=== PATIENT | female | born 1995 | race Caucasian/White ===

== ENCOUNTER 2020-04-09 14:38 | Outpatient (REF) | payer OTHER, SELFPAY | END 2020-04-09 14:39 | disposition home or self-care (01) | LOC: HO.HMGCLDS 14:38 | PROVIDERS: Visit Provider Internal Medicine | DX: Z20.828 Contact with and (suspected) exposure to other viral communicable diseases (principal) | CPT/HCPCS: C9803; U0003 ==

== ENCOUNTER 2020-07-20 08:41 | Outpatient (REF) | payer OTHER, SELFPAY ==
[2020-07-20 11:24] LABS: MANUAL DIFF FLAG NO
[2020-07-20 11:38] LABS: Basophils Absolute Auto 0.1 X10*3/uL (0.0-0.2); Basophils Percent Auto 1.3 % (0-2); Eosinophils Absolute Auto 0.1 X10*3/uL (0.0-0.4); Eosinophils Percent Auto 2.6 % (0-4); Hematocrit 39.5 % (37-47); Hemoglobin 12.9 g/dl (12.0-16.0); Imm Gran Abs Auto 0.01 X10*3/uL (0.00-0.03); Imm Gran Pct Auto 0.2 % (0.0-0.4); Lymphocytes Absolute Auto 2.2 X10*3/uL (1.2-4.9); Lymphocytes Percent Auto 48.8 % (20-40); Mean Corpuscular HGB Conc 32.7 g/dl (31.0-35.0); Mean Corpuscular Hemoglobin 28.4 pg (27.0-33.0); Mean Platelet Volume 11.2 fL (9.4-12.3); Monocytes Absolute Auto 0.3 X10*3/uL (0.1-1.2); Monocytes Percent Auto 7.3 % (2-11); Neutrophils Absolute Auto 1.8 X10*3/uL (2.0-8.3); Neutrophils Percent Auto 39.8 % (45-73); Platelet Count 224 X10*3/uL (160-400); Red Blood Count 4.54 X10*6/uL (4.20-5.50); Red Cell Distribution Width 12.3 % (11.0-16.0); White Blood Count 4.5 X10*3/uL (4.8-10.8)
[2020-07-20 11:58] LABS: Alanine Aminotransferase 30 U/L (0-31); Anion Gap 11 (12-20); Aspartate Amino Transferase 24 U/L (5-31); Blood Urea Nitrogen 10 mg/dL (9-16); Calcium 8.7 mg/dL (8.4-10.2); Carbon Dioxide 28 mmol/L (22-29); Chloride 107 mmol/L (96-108); Cholesterol 167 mg/dL; Estimated Glomerular Filt Rate > 60; Glucose Fasting 94 mg/dL (60-99); HDL Cholesterol 45 mg/dL; LDL Cholesterol Calculated 106 mg/dl; Potassium 3.9 mmol/L (3.3-5.1); Sodium 142 mmol/L (135-145); Triglycerides 81 mg/dL
[2020-07-20 12:04] LABS: TSH reflex Free T4 1.45 uIU/mL (0.32-4.0); Vitamin D 25-OH Total 21.1 ng/mL (>30)
== END 2020-07-20 08:42 | disposition home or self-care (01) ==
LOC: HO.HMGCLDS 08:41
PROVIDERS: PCP Internal Medicine; Visit Provider Internal Medicine
DX: Z00.01 Encounter for general adult medical examination with abnormal findings (principal); R06.02 Shortness of breath; R00.2 Palpitations; F41.1 Generalized anxiety disorder; I10 Essential (primary) hypertension
CPT/HCPCS: 36415; 80048; 80061; 82306; 84443; 84450; 84460; 85025

== ENCOUNTER → 2020-08-25 10:32 | Outpatient (BNVA) | payer OTHER, SELFPAY | PROVIDERS: PCP Internal Medicine; Visit Provider Internal Medicine | DX: R00.2 Palpitations (principal) | CPT/HCPCS: 93005 ==

== ENCOUNTER → 2020-10-11 08:32 | Outpatient (REF) | payer OTHER, SELFPAY ==
--- NOTE | 2020-10-11 08:37 | CA_ITS ---
Transthoracic Echocardiogram Patient (Last, First, Middle): Randa Tijerina L Gender: Female Date of : 1995 Age: 25 Procedure Date: 10/11/2020 Procedure Type: Transthoracic Echocardiogram Location: OP Height: 157.48 cm Weight: 50.8 kg BSA: 1.49 m2 Heart Rate: bpm BP: 100 / 50 mmHg [place]ogshead Cooper: MORGAN Chanel MD: Tyson Doyle MD [employer] Manager: Ludwig Murray MD Symptoms: R00.2 - Palpitations Study Quality: Good ECG Rhythm: Sinus Conclusions: - Normal study Findings Left Ventricle Normal left ventricular size, thickness, and systolic function. The visually estimated ejection fraction is between 60-65%. Diastolic function is normal for age. Right Ventricle Normal right ventricular cavity size and systolic function. Atria Both atria are normal in size. There is no evidence of interatrial shunt. Aortic Valve Normal aortic valve structure and function. There is no aortic valve stenosis. There is no aortic valve regurgitation. Mitral Valve Normal mitral valve structure and function. There is trace mitral valve regurgitation. There is no mitral valve stenosis. Pulmonic Valve The pulmonic valve is likely normal. Tricuspid Valve Normal tricuspid valve structure. There is trace tricuspid valve regurgitation. The right ventricular systolic pressure is normal. The right ventricular systolic pressure is 14 mmHg. Normal right atrial pressure. There is no evidence of pulmonary hypertension. Great Vessels All visible segments of the aorta are normal in size. The pulmonary artery was not well visualized. Venous The inferior vena cava is normal in size and collapses greater than 50% with inspiration. Pericardium/Pleural There is no evidence of pericardial effusion. Prior Study Comparison No prior study available for comparison. Measurements 2D Linear Measurements IVSd: 0.69 0.6-0.9/0.6-1.0 cm LVIDd: 3.98 3.9-5.3/4.2-5.9 cm LVIDd Index: 2.67 2.4-3.2/2.2-3.1 cm/m2 LVIDs: 2.63 2.0-3.6 cm LVPWd: 0.73 0.7-1.1 cm Ao Root: 2.80 2.1-3.5 cm LA Diam: 2.60 2.7-3.8/3.0-4.0 cm LAIDs Index: 1.74 1.5-2.3 cm/m2 LV Mass: 97.56 67-162/88-224 g LV Mass Index: 65.48 43-95/49-115 g/m2 LVOT Diam: 2.00 3.0+(-)1.3 cm 2D Systolic Function EF 4C: 54.50 >55% EF 2C: 67.80 >55% EF BiP: 61.50 >55% Mitral Valve MV Pk E: 0.78 MV PK A: 0.65 MV Decel Time: 218.00 E/A: 1.20 E'Lateral: 13.50 E'Medial: 11.00 E/E' Med: 7.10 E/E' Lat: 5.80 PHT: 64.00 MVA PHT: 3.44 Decel [place]: 3.56 Aortic Valve AoV Pk Vinny: 1.12 AoV Mn Vinny: 0.76 AoV VTI: 0.26 AoV Pk Grad: 5.00 Aov Mn Grad: 3.00 ODALYS Cont.VTI: 2.41 LVOT LVOT Pk Vinny: 0.93 LVOT Mn Vinny: 0.69 LVOT VTI: 0.20 LVOT Pk Grad: 3.00 LVOT Mn Grad: 2.00 LVOT Diam: 2.00 LVOT Area: 3.14 Diastolic Function MV Pk E: 0.78 MV Pk A: 0.65 E/A: 1.20 E'Medial: 11.00 E/E' Med: 7.10 E' Laterial: 13.50 E/E' Lat: 5.80 Tricuspid Valve TR Pk Vinny: 1.66 TR Pk Grad: 11.00 RA Press: 3.00 RVSP: 14.00 Great Vessels Aorta Ao Root-2D: 2.80 2.0-3.7 cm Ao Asc: 2.40 2.1-3.4 cm Ao Arch: 2.10 Updated in Other Vendor System with Status of Final Ludwig Murray MD electronically signed on 10/11/2020 1:35:31 PM with status of Final
--- NOTE | 2020-10-11 08:37 | ECG_ITS ---
Hook-up date: 2020-10-11 09:29:00 Duration: 28:44:00 Test Indications: PALPITATIONS Medications: 072347 QRS complexes 2 Ventricular ectopics which represent <1 % of total QRS comp. 238 Supraventricular ectopics which represent <1 % of total QRS comp. * Paced QRS complexs which represent % of total QRS comp. VENTRICULAR ECTOPY 2 Isolated 0 Bigeminal Cycles 0 Couplets 0 Runs 0 Beats in Runs * Beats LONGEST at * BPM at :: -- * Beats FASTEST at * BPM at :: -- SUPRAVENTRICULAR ECTOPY 0 Isolated 0 Couplets 0 Runs 0 Beats in Runs * Beats LONGEST at * BPM at :: -- * Beats FASTEST at * BPM at :: -- HEART RATES 52 MIN at 03:07:50 2020-10-12 82 AVG 186 MAX at 18:09:42 2020-10-11 LONGEST RR 1.2560 secs at 05:48:48 2020-10-12 S-T LEVELS Channel 1 - 128 mm at 09:29:00 2020-10-11 - 128 mm at 09:29:00 2020-10-11 Channel 2 - 128 mm at 09:29:00 2020-10-11 - 128 mm at 09:29:00 2020-10-11 Channel 3 - 128 mm at 02:84:81 -- - 128 mm at 02:84:81 Basic rhythm Normal sinus rhythm No long pause or profound bradycardia No dangerous dysrhythm periods Patient reported symptoms correlated with NSR Referred By: Tyson Doyle Overread By: THERON ANDRE MD
== END ==
LOC: HO.CARD 08:32
PROVIDERS: Visit Provider Internal Medicine
DX: R00.2 Palpitations (principal)
CPT/HCPCS: 93225; 93226; 93306

== ENCOUNTER → 2020-10-20 13:14 | Outpatient (BNVA) | payer OTHER, SELFPAY | PROVIDERS: PCP Internal Medicine; Referring Provider Internal Medicine; Visit Provider Internal Medicine ==

== ENCOUNTER 2021-07-21 09:42 | Outpatient (REF) | payer OTHER, SELFPAY ==
[2021-07-21 11:22] LABS: MANUAL DIFF FLAG NO
[2021-07-21 11:33] LABS: Basophils Percent Auto 0.6 % (0-2); Eosinophils Absolute Auto 0.2 X10*3/uL (0.0-0.4); Eosinophils Percent Auto 2.1 % (0-4); Hematocrit 40.3 % (37.0-47.0); Hemoglobin 13.3 g/dl (12.0-16.0); Imm Gran Abs Auto 0.02 X10*3/uL (0.00-0.03); Imm Gran Pct Auto 0.3 % (0.0-0.4); Lymphocytes Absolute Auto 2.2 X10*3/uL (1.2-4.9); Lymphocytes Percent Auto 30.8 % (20-40); Mean Corpuscular Hemoglobin 28.7 pg (27.0-33.0); Monocytes Absolute Auto 0.5 X10*3/uL (0.1-1.2); Neutrophils Absolute Auto 4.2 x10*3/uL (2.0-8.3); Neutrophils Percent Auto 59.2 % (45-73); Platelet Count 219 X10*3/uL (160-400); Red Blood Count 4.63 X10*6/uL (4.20-5.50); Red Cell Distribution Width 12.3 % (11.0-16.0); White Blood Count 7.1 X10*3/uL (4.8-10.8)
[2021-07-21 11:53] LABS: Alanine Aminotransferase 11 U/L (0-31); Anion Gap 12 (12-20); Aspartate Amino Transferase 19 U/L (5-31); Blood Urea Nitrogen 11 mg/dL (9-16); Carbon Dioxide 27 mmol/L (22-29); Chloride 105 mmol/L (96-108); Cholesterol 162 mg/dL; Estimated Glomerular Filt Rate > 60; Glucose Fasting 84 mg/dL (60-99); HDL Cholesterol 44 mg/dL; LDL Cholesterol Calculated 102 mg/dl; Potassium 4.4 mmol/L (3.3-5.1); Sodium 140 mmol/L (135-145); Triglycerides 84 mg/dL
[2021-07-21 12:13] LABS: Vitamin D 25-OH Total 30.2 ng/mL (>30)
== END 2021-07-21 09:43 | disposition home or self-care (01) ==
LOC: HO.HMGCLDS 09:42
PROVIDERS: Visit Provider Internal Medicine
DX: Z00.00 Encounter for general adult medical examination without abnormal findings (principal); F41.1 Generalized anxiety disorder; Z86.39 Personal history of other endocrine, nutritional and metabolic disease
CPT/HCPCS: 36415; 80048; 80061; 82306; 84450; 84460; 85025

== ENCOUNTER 2022-08-01 09:07 | Outpatient (REF) | payer OTHER, SELFPAY ==
[2022-08-01 11:15] LABS: MANUAL DIFF FLAG NO
[2022-08-01 11:35] LABS: Basophils Absolute Auto 0.1 X10*3/uL (0.0-0.2); Basophils Percent Auto 1.1 % (0-2); Eosinophils Absolute Auto 0.1 X10*3/uL (0.0-0.4); Eosinophils Percent Auto 2.2 % (0-4); Hematocrit 42.5 % (37.0-47.0); Hemoglobin 14.3 g/dl (12.0-16.0); Imm Gran Abs Auto 0.01 X10*3/uL (0.00-0.03); Imm Gran Pct Auto 0.2 % (0.0-0.4); Lymphocytes Absolute Auto 2.5 X10*3/uL (1.2-4.9); Lymphocytes Percent Auto 45.3 % (20-40); Mean Corpuscular HGB Conc 33.6 g/dl (31.0-35.0); Mean Corpuscular Hemoglobin 29.4 pg (27.0-33.0); Mean Corpuscular Volume 87.3 fL (80.0-98.0); Mean Platelet Volume 10.1 fL (9.4-12.3); Monocytes Absolute Auto 0.4 X10*3/uL (0.1-1.2); Monocytes Percent Auto 7.3 % (2-11); Neutrophils Absolute Auto 2.4 x10*3/uL (2.0-8.3); Neutrophils Percent Auto 43.9 % (45-73); Platelet Count 262 X10*3/uL (160-400); Red Blood Count 4.87 X10*6/uL (4.20-5.50); Red Cell Distribution Width 12.5 % (11.0-16.0); White Blood Count 5.5 X10*3/uL (4.8-10.8)
[2022-08-01 12:25] LABS: Alanine Aminotransferase 20 U/L (0-31); Anion Gap 13 (12-20); Aspartate Amino Transferase 21 U/L (5-31); Blood Urea Nitrogen 14 mg/dL (9-16); Calcium 8.7 mg/dL (8.4-10.2); Carbon Dioxide 28 mmol/L (22-29); Chloride 105 mmol/L (96-108); Cholesterol 194 mg/dL; Estimated Glomerular Filt Rate > 60; Glucose Fasting 97 mg/dL (60-99); HDL Cholesterol 50 mg/dL; LDL Cholesterol Calculated 106 mg/dl; Potassium 3.8 mmol/L (3.3-5.1); Sodium 142 mmol/L (135-145); Triglycerides 192 mg/dL
[2022-08-01 12:42] LABS: Vitamin D 25-OH Total 38.7 ng/mL (>30)
[2022-08-01 13:58] LABS: CT PCR NOT DETECTED (Not Detect.); NG PCR NOT DETECTED (Not Detect.)
[2022-08-02 05:56] LABS: HBc Num1 0.09 S/CO (0.00-0.79); HBsAGNum1 0.35 S/CO (0.00-0.99); HIV AB/AG Nonreactive (Nonreactive); HIV Num 1 0.09 S/CO (0.00-0.99); Hepatitis B Core Antibody Nonreactive (Nonreactive); Hepatitis B Surface Antigen Negative (Negative); ~HepC Num1 0.19 S/CO (0.00-0.79); ~Hepatitis B Surface Antibody NONREACTIVE (Nonreactive); ~Hepatitis C Antibody Nonreactive (Nonreactive)
== END 2022-08-01 09:08 | disposition home or self-care (01) ==
LOC: HO.HMGCLDS 09:07
PROVIDERS: PCP Internal Medicine; Visit Provider Internal Medicine
DX: Z00.01 Encounter for general adult medical examination with abnormal findings (principal); F41.1 Generalized anxiety disorder; Z86.39 Personal history of other endocrine, nutritional and metabolic disease; Z20.2 Contact with and (suspected) exposure to infections with a predominantly sexual mode of transmission
CPT/HCPCS: 0353U; 80048; 80061; 82306; 84450; 84460; 85025; 86704; 86706; 86803; 87340; 87389

== ENCOUNTER 2022-10-14 10:40 | Outpatient (REF) | payer OTHER, SELFPAY | END 2022-10-14 10:41 | disposition home or self-care (01) | LOC: HO.LAB 10:40 | PROVIDERS: Visit Provider Physician Assistant Medical | DX: Z13.89 Encounter for screening for other disorder (principal) ==

== ENCOUNTER 2022-10-14 11:13 | Outpatient (REF) | payer OTHER, SELFPAY ==
[2022-10-14 12:10] LABS: Influenza A PCR NEGATIVE (Negative); Influenza B PCR NEGATIVE (Negative); Resp Syncy Virus RNA Qual PCR NEGATIVE (Negative); SARS COV2 PCR INHOUSE NEGATIVE (Negative)
== END 2022-10-14 11:14 | disposition home or self-care (01) ==
LOC: HO.LNP 11:13
PROVIDERS: Visit Provider Physician Assistant Medical
DX: R05.9 Cough, unspecified (principal); Z20.822 Contact with and (suspected) exposure to COVID-19
CPT/HCPCS: 0241U

== ENCOUNTER 2023-02-05 10:03 | Outpatient (AMB) | payer OTHER, SELFPAY ==
--- NOTE | 2023-02-05 10:30 | AM.OFFVISNUR ---
Intake Intake Visit Reasons: hep vax Intake Note: Pt arrived for Hep B #3 Allergies No Known Allergies Allergy (Verified 10/25/22 17:32) Immunizations Engerix-B (PF) 20 mcg/mL intramuscular suspension Performing Provider: Ying Castillo MD Performing Location: [facility] Administered by: Ruth Munoz RN on 02/05/23 10:31 Dose Route Admin Location Dispensed Lot Number Expiration Date NDC Stock Handler Floorperson 1 mL IM Left Deltoid 1.0 mL [id number] 04/29/23 09780-928-05 [employer] VIS Given Date VIS Provided VIS Publication Date 02/05/23 Single Vaccine 22 Eligibility Eligibility Date Funding Source Not [facility] Eligible 02/05/23 Private Coding Assessment & Plan Assessment & Plan Orders: Orders Hepatitis B Adult Immunization Today Z23 - Encounter for immunization
== END 2023-02-05 10:58 | disposition home or self-care (01) ==
PROVIDERS: Visit Provider Internal Medicine
DX: Z23 Encounter for immunization (principal)
CPT/HCPCS: 90471; 90746

== ENCOUNTER → 2023-04-09 16:28 | Outpatient (AMB) | payer OTHER, SELFPAY ==
--- NOTE | 2023-04-09 16:23 | A.OFFPC_ITS ---
Intake Visit Reasons: Medications F/U Intake Note: Pt is having a telehealth visit to discuss refills on new rx for Zoloft 50mg once a day that was given to her about 1.5 months ago thru online telehealth Allergies No Known Allergies Allergy (Verified 04/09/23 16:42) Medication List - Last Reconciled 04/09/23 by Ying Castillo MD levonorgestrel intrauterine sertraline (Zoloft) 50 mg PO DAILY Tobacco use date assessed: 04/09/23 Dental Screening Dental Screen Date: 04/09/23 Did you have a dental visit in the last 12 months?: Yes Did you have a dental problem in the last 6 months where you did not have access to dental care?: No Was dental information given to patient?: Patient has dentist HPI Medications F/U HPI Details 28-year-old lady here today for follow-u p on her anxiety disorder. She did not feel any better on the buspirone, and started seeing a psychiatrist online, who started her on sertraline 50 mg taken 1 tablet once a day at around 07:00 all the time. Patient states that she feels much better, calmer, on this medication and has stopped taking buspirone. However, she still gets occasional episodes of panicky feeling couple of hours after taking her sertraline, and would like to see if she can get prescription for hydroxyzine, to take as needed for 1 of these episodes. Does not happen all the time. She also was prescribed trazodone 50 mg 1 tablet at bedtime for acute anxiety attacks and difficulty with sleeping. She however states that medication made made her feel hung-over. Decreased the dose to 25 mg but this did not help her sleep at all. [facility] Medical History (Updated 04/09/23 @ 17:02 by Ying Castillo MD) History of vitamin D deficiency Generalized anxiety disorder Surgical History No pertinent past surgical history Family History Father Medical history non-contributory Mother Medical history non-contributory Maternal Grandmother Diabetes mellitus Social History Housing: House Alcohol intake: current Patient Tobacco Use Status: Never used Tobacco e-Cigarette/Vaping Use: Never Used service: No Current occupational status: employed Cognitive needs: No Hearing needs: No Vision needs: No Questionnaire Thrive Questionnaire Date Thrive assessed: 07/24/22 AUDIT C Alcohol Use Questionnaire (AUDIT-C) 1. How often do you have a drink containing alcohol?: Monthly or less 2. How many drinks containing alcohol do you have on a typical day when you are drinking?: 1 or 2 3. How often do you have six or more drinks on one occasion?: Never Total Score: 1 ANGELA-7 AMB Questionnaire ANGELA-7 Date ANGELA - 7 assessed: 04/09/23 Feeling nervous, anxious, or on edge: 0 = Not at all Not being able to stop or control worryin = Several days Worrying too much about different things: 0 = Not at all Trouble relaxin = Not at all Being so restless that it is hard to sit still: 0 = Not at all Becoming easily annoyed or irritable: 0 = Not at all Feeling afraid as if something awful might happen: 0 = Not at all Total ANGELA-7 score (0-4 normal; 5-9 mild; 10-14 moderate; 15-21 severe): 1 Source: Developed by Drs. Edu Guerra, Kirti Dwyer, Dennis Barr and colleagues, with an educational nila from [employer]. ANGELA-7 Assessment Billing ANGELA-7 Assessment Tool: ANGELA-7 Assessment 02712 Review of Systems Const Denies fatigue and Denies malaise ENT Denies dizziness Card Denies chest pain, Denies leg edema, Denies lightheadedness, Denies palpitations and Denies dyspnea Resp Denies cough and Denies dyspnea GI Denies abdominal pain, Denies bloating, Denies hematochezia, Denies change in bowel habits, Denies heartburn and Denies nausea Musc Denies muscle weakness, Denies numbness, Denies radiating pain into limb and Denies tingling Neuro Denies dizziness, Denies numbness and Denies tingling Psych Reports as per HPI Endo Denies fatigue and Denies palpitations Negro/Lymph Reports no additional complaints Aller/Immun Reports no additional complaints Physical exam (Primary Care) Tobacco/Smoking Status: Tobacco use Status Tobacco use date assessed 04/09/23 04/09/23 16:26 Patient Tobacco Use Status Never used Tobacco 04/09/23 16:26 e-Cigarette/Vaping Use Never Used 04/09/23 16:26 Thrive Assessment: Date of Thrive Assessment Date Thrive assessed 07/24/22 04/09/23 16:26 Telehealth Telehealth Location of provider rendering services: practice address Location of patient: address on file Patient Identification confirmed using: Name, : Yes Telehealth method: video Patient verbally consented to treatment: Yes Patient verbally consented to billing insurance company: Yes Patient informed of any privacy concerns related to visit: Yes Minutes spent on Phone/Video with Pt.: 15 Assessment and Plan Assessment & Plan (1) Generalized anxiety disorder: Code(s): F41.1 - Generalized anxiety disorder Plan: Currently seeing a therapist, will continue on sertraline 50 mg once a day which has been helping, and prescription was also sent for hydroxyzine 10 mg per tablet to take 1/2-1 tablet once a day as needed for acute anxiety attacks/insomnia. Medications: New hydroxyzine HCl 10 mg PO .QD PRN 30 tabs 0RF Acute anxiety attacks/insomnia sertraline (Zoloft) 50 mg PO DAILY 90 tabs 1RF sertraline (Zoloft) 50 mg PO DAILY 90 tabs 1RF hydroxyzine HCl 10 mg PO .QD PRN 30 tabs 0RF Acute anxiety attacks/insomnia Coding Level of Care Code Tele Est Pt Level 3 (35047) Diagnoses Generalized anxiety disorder F41.1 Additional Codes ANGELA-7 Assessment Billing - ANGELA-7 Assessment Tool: ANGELA-7 Assessment 25776 ([id number])
== END ==
PROVIDERS: PCP Internal Medicine; Visit Provider Internal Medicine
DX: F41.1 Generalized anxiety disorder (principal)
CPT/HCPCS: 99213

== ENCOUNTER 2023-08-02 07:54 | Outpatient (AMB) | payer OTHER, SELFPAY ==
--- NOTE | 2023-08-02 08:01 | A.OFFPC_ITS ---
Vital Signs 08/02/23 08:02 Height 5 ft 2 in Weight 118 lb 6 oz BMI 21.6 BP 112/72 Blood Pressure Location Rt brachial Position Sitting Pulse 90 Pulse Source Pulse Oximeter Pulse Oximetry (%) 98 Oxygen Delivery Method Room Air Intake Visit Reasons: PE Intake Note: Pt is here for her Annual PE Pt's last pap 2 years ago and next appt 08/17/23 Is last menstrual period known: Yes Last menstrual period: 06/28/23 Allergies No Known Allergies Allergy (Verified 08/02/23 08:17) Medication List - Last Reconciled 08/02/23 by Ying Castillo MD hydroxyzine HCl 10 mg PO .QD PRN levonorgestrel intrauterine sertraline (Zoloft) 75 mg (1.5 x 50 mg) PO DAILY 3 months Tobacco use date assessed: 08/02/23 Dental Screening Dental Screen Date: 08/02/23 Did you have a dental visit in the last 12 months?: Yes Did you have a dental problem in the last 6 months where you did not have access to dental care?: No Was dental information given to patient?: Patient has dentist HPI PE HPI Details 28 Lady here today for her physical exam . She is up-to-date with the last Pap smear, done 2 years ago and has an appointment to get it done again later this month. Recently had Mirena inserted earlier this year by her OBGYN. Has generalized anxiety disorder, currently stable controlled now on sertraline 75 mg taken once a day, requesting refill. Wentr rock climbing approximately 2 months ago and fell backwards landing on her buttocks with her arms stretched out on the floor, felt pain in the back of her head afterwards and has been having intermittent episodes of discomfort in the posterior neck specially when lying supine. Denies any dizziness no loss of consciousness, no change in vision.. [facility] Medical History History of vitamin D deficiency Generalized anxiety disorder Surgical History No pertinent past surgical history Family History Father Medical history non-contributory Mother Medical history non-contributory Maternal Grandmother Diabetes mellitus Social History Housing: House Alcohol intake: current Patient Tobacco Use Status: Never used Tobacco e-Cigarette/Vaping Use: Never Used service: No Current occupational status: employed Cognitive needs: No Hearing needs: No Vision needs: No Female Reproductive History Menstrual Date of last menstrual period: 06/28/23 control method: progestin IUCD (Goes to [facility], placed 06/28/23 per patient) Other: Goes to [facility] for her routine Pap and pelvic exam, has an appointment for a repeat Pap later this month Questionnaire PHQ-9 Over the last 2 weeks, how often have you been bothered by any of the following problems? 1. Little interest or pleasure in doing things: not at all 2. Feeling down, depressed, or hopeless: not at all 3. Trouble falling or staying asleep, or sleeping too much: not at all 4. Feeling tired or having little energy: not at all 5. Poor appetite or overeating: not at all 6. Feeling bad about yourself - or that you are a failure or have let yourself or your family down: not at all 7. Trouble concentrating on things, such as reading the newspaper or watching television: not at all 8. Moving or speaking so slowly that other people could have noticed. Or the opposite - being so fidgety or restless that you have been moving around a lot more than usual: not at all 9. Thoughts that you would be better off or of hurting yourself in some way: not at all Total score: 0 Depression Screening Interpretation: Negative Depression Screening Done: Yes 13517 - PHQ-9 Billing: Yes Source: Developed by Drs. Edu Guerra, Kirti Dwyer, Dennis Barr and colleagues, with an educational nila from [employer]. Thrive Questionnaire Date Thrive assessed: 08/02/23 I am a: Patient What is your living situation today?: I have a steady place to live Within the past 12 months, did the food you bought not last and you didn't have the money to get more?: Never true Within the past 12 months, did you worry whether your food would run out before you got money to buy more?: Never true Do you have trouble paying for medicines?: No Do you have trouble getting transportation to medical appointments?: No Do you have trouble paying your heating and electricity bill?: No Do you have trouble taking care of your child, family member or friend?: No Do you have trouble with day-to-day activities such as bathing, preparing meals, shopping, managing finances, etc.?: No Are you currently unemployed and looking for a job?: No Are you interested in more education?: No THRIVE Score: 0 AUDIT C Alcohol Use Questionnaire (AUDIT-C) 1. How often do you have a drink containing alcohol?: Monthly or less 2. How many drinks containing alcohol do you have on a typical day when you are drinking?: 1 or 2 3. How often do you have six or more drinks on one occasion?: Never Total Score: 1 ANGELA-7 AMB Questionnaire ANGELA-7 Date ANGELA - 7 assessed: 08/02/23 Feeling nervous, anxious, or on edge: 0 = Not at all Not being able to stop or control worryin = Not at all Worrying too much about different things: 0 = Not at all Trouble relaxin = Not at all Being so restless that it is hard to sit still: 0 = Not at all Becoming easily annoyed or irritable: 0 = Not at all Feeling afraid as if something awful might happen: 0 = Not at all Total ANGELA-7 score (0-4 normal; 5-9 mild; 10-14 moderate; 15-21 severe): 0 Source: Developed by Drs. Edu Guerra, Kirti Dwyer, Dennis Barr and colleagues, with an educational nila from [employer]. ANGELA-7 Assessment Billing ANGELA-7 Assessment Tool: ANGELA-7 Assessment 59448 Review of Systems Const Denies fatigue, Denies headache(s), Denies malaise and Denies weakness Eyes Reports no additional complaints ENT Reports as per HPI, Denies dizziness, Denies headache(s) and Denies disequilibrium Card Denies chest pain, Denies lightheadedness, Denies palpitations and Denies dyspnea Resp Denies cough and Denies dyspnea GI Denies abdominal pain, Denies bloating, Denies hematochezia, Denies change in bowel habits and Denies heartburn Reports no additional complaints Musc Reports as per HPI, Denies muscle weakness and Denies numbness Skin/Breast Denies breast pain, Denies breast mass, Denies lesions and Denies rash Neuro Denies dizziness, Denies headache(s), Denies numbness, Denies disequilibrium and Denies weakness Psych Reports as per HPI Endo Denies fatigue and Denies palpitations Negro/Lymph Reports no additional complaints Aller/Immun Reports no additional complaints Physical exam (Primary Care) Vital Signs: Last Vital Signs Pulse 90 08/02/23 08:02 BP 112/72 08/02/23 08:02 Pulse Ox 98 08/02/23 08:02 Oxygen Delivery Method Room Air 08/02/23 08:02 BMI result Body Mass Index 21.6 Tobacco/Smoking Status: Tobacco use Status Tobacco use date assessed 08/02/23 08/02/23 08:04 Patient Tobacco Use Status Never used Tobacco 08/02/23 08:01 e-Cigarette/Vaping Use Never Used 08/02/23 08:01 Depression Screening Interpretation: Negative Thrive Assessment: Date of Thrive Assessment Date Thrive assessed 07/24/22 08/02/23 08:01 Advance Care Planning discussion: Declined forms Const General: cooperative, healthy appearing, comfortable and no acute distress Nutritional Appearance: average body habitus Orientation/consciousness: patient oriented x3 HENMT Head: Yes normocephalic Ears: external ears normal, TM's normal bilaterally and EAC's normal General nose exam: Normal external nose present Face and sinus: Yes face symmetric Mouth: Normal oral and palatal mucosa present and moist mucous membranes Eyes General: appearance normal, both eyes and all related structures Neck Neck: Yes full ROM, Yes no lymphadenopathy and Yes supple Thyroid: Thyroid normal Chest Chest palpation & inspection: normal inspection of the chest Breast/axilla inspection: normal inspection of the breasts Breast/axilla palpation: normal palpation of the breasts Resp Effort & Inspection: normal respiratory effort and able to speak in complete sentences Auscultation: clear to auscultation bilaterally Cardio Palpation: normal PMI Rate: regular rate Rhythm: regular rhythm Heart sounds: S1 normal heart sound present and S2 normal heart sound present GI Inspection: Yes normal to inspection Palpation (GI): Soft to palpation, nontender, no guarding and no masses Auscultation: normal bowel sounds General: Yes no CVA tenderness Back/Spine/Pelvis Back: no CVA tenderness Cervical Spine: cervical ROM normal Thoracic/Lumbar Spine: thoracic and lumbar spine normal to inspection Skin General skin exam: no rashes or lesions noted Neuro General: patient oriented x3, gait normal, tone normal, moves all extremities, no focal motor deficits and CN's II-XI intact bilaterally Gait exam (Neuro): Normal gait present Motor exam (neuro): 5/5 motor strength present throughout Extrem General: Yes full ROM, Yes no joint enlargement, Yes no pedal edema, Yes no calf tenderness and Yes normal gait Psych Appearance: grossly normal and well kempt Mental Status: mental status grossly normal Speech and movement: Normal speech and movement present Affect: normal affect Attitude: cooperative Thought process: Normal thought process present Thought content: Normal thought content present Assessment and Plan Assessment & Plan (1) Annual visit for general adult medical examination with abnormal findings: Code(s): Z00.01 - Encounter for general adult medical examination with abnormal findings Plan: Will check appropriate labs. Recommended dental visit every 6 months and regular eye exams, at least every 2 years. Take adequate calcium in diet and vitamin-D 3 at 2000 IU per cap once a day, in addition to weight-bearing exe rcises to help maintain good muscle tone and weight control. Instructed to do self-breast exam, and recommended to stsrt yearly mammogram at age 40. Goes to her OBGYN at [facility] for her routine Pap and pelvic exam and for her control, has an appointment already scheduled for later this month. Up-to-date with her hepatitis-B vaccination, Tdap, but does not want to get a COVID vaccine booster or the flu shot this year. (2) Generalized anxiety disorder: Code(s): F41.1 - Generalized anxiety disorder Plan: Stable controlled on sertraline 75 mg once a day, refill sent (3) History of vitamin D deficiency: Code(s): Z86.39 - Personal history of other endocrine, nutritional and metabolic disease Plan: Check vitamin-D left (4) Cervicalgia: Code(s): M54.2 - Cervicalgia Plan: X-ray of cervical spine advised to try massaging diclofenac gel to affected area to 2 3 times a day as needed for pain relief Orders: Orders Alanine Aminotransferase 08/02/23 F41.1 - Generalized anxiety disorder, Z00.01 - Encounter for general adult medical examination with abnormal findings, Z86.39 - Personal history of other endocrine, nutritional and metabolic disease Aspartate Amino Transferase 08/02/23 F41.1 - Generalized anxiety disorder, Z00.01 - Encounter for general adult medical examination with abnormal findings, Z86.39 - Personal history of other endocrine, nutritional and metabolic disease Basic Metabolic Panel Fasting 08/02/23 F41.1 - Generalized anxiety disorder, Z00.01 - Encounter for general adult medical examination with abnormal findings, Z86.39 - Personal history of other endocrine, nutritional and metabolic disease Lipid Panel 08/02/23 F41.1 - Generalized anxiety disorder, Z00.01 - Encounter for general adult medical examination with abnormal findings, Z86.39 - Personal history of other endocrine, nutritional and metabolic disease Vitamin D 25-OH Total 08/02/23 F41.1 - Generalized anxiety disorder, Z00.01 - Encounter for general adult medical examination with abnormal findings, Z86.39 - Personal history of other endocrine, nutritional and metabolic disease XR cervical spine w flex/ext 08/02/23 M54.2 - Cervicalgia Medications: Changed From sertraline (Zoloft) 50 mg PO DAILY 90 tabs 1RF To sertraline (Zoloft) 75 mg (1.5 x 50 mg) PO DAILY 3 months 135 tabs 3RF Coding Level of Care Code Est Pt Prev Care 18-39y(04924) Diagnoses Annual visit for general adult medical examination with abnormal findings Z00.01 Generalized anxiety disorder F41.1 History of vitamin D deficiency Z86.39 Cervicalgia M54.2 Additional Codes ANGELA-7 Assessment Billing - ANGELA-7 Assessment Tool: ANGELA-7 Assessment 90317 ([id number]) Vital Signs *Quality* - Advance Care Planning discussion: Declined forms ([id number])
[2023-08-02 08:02] VITALS: BP 112/72; PULSE 90; O2SAT 98; BMI 21.6
== END 2023-08-02 09:12 | disposition home or self-care (01) ==
PROVIDERS: Visit Provider Internal Medicine
DX: Z00.00 Encounter for general adult medical examination without abnormal findings (principal); F41.1 Generalized anxiety disorder; Z86.39 Personal history of other endocrine, nutritional and metabolic disease; M54.2 Cervicalgia
CPT/HCPCS: 1124F; 99395

== ENCOUNTER 2023-08-02 08:32 | Outpatient (REF) | payer OTHER, SELFPAY ==
--- NOTE | ~2023-08-02 | XR_ITS ---
EXAMINATION: XR CERVICAL SPINE CLINICAL INFORMATION: Neck pain. COMPARISON: None available. TECHNIQUE: 5 views of the cervical spine, inclusive of flexion and extension views, were obtained. FINDINGS: Mild reversal of the normal cervical lordosis centered at C4. Approximately 1 mm posterior subluxation of C2 on C3, C3 on C4, and C4 on C5 on extension. No significant subluxation in neutral. Approximately 1 mm anterior subluxation of C2 on C3, C4 on C5, and C5 on C6 in flexion. No intrinsic bony abnormality identified. The disc heights appear well maintained. The endplates and posterior elements otherwise appear unremarkable. No fracture appreciated. The surrounding prevertebral soft tissues appear unremarkable. XR/XR cervical spine w flex/ext IMPRESSION: Findings as above.
== END 2023-08-02 08:33 | disposition home or self-care (01) ==
LOC: HO.HMGCX 08:32
PROVIDERS: PCP Internal Medicine; Visit Provider Internal Medicine
DX: M54.2 Cervicalgia (principal)
CPT/HCPCS: 72052

== ENCOUNTER 2023-08-24 13:07 | Outpatient (AMB) | payer OTHER, SELFPAY ==
--- NOTE | 2023-08-24 13:10 | A.SPINEOV_ITS ---
Intake Intake Visit Reasons: cervicalgia Intake Note: Ms. Tijerina is here today c/o neck pain. Nutrition Coordinator Required: No Allergies No Known Allergies Allergy (Verified 08/02/23 08:17) Assessment & Plan Assessment & Plan (1) Neck Pain: Code(s): M54.2 - Cervicalgia Plan Dear Dr. Castillo Thank you for referring Randa to our office today. 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 She comes in today with a chief complaint of neck pain. She reports that back in April she was rock climbing at a gym, and fell backwards bracing herself on her hands. She reports significant posterior neck pain directly after this incident. She reports her pain was severe when she 1st experienced the fall, however it has gradually been getting better. She states that she has attempted to utilize Tylenol, ibuprofen, and Salonpas/heat with adequate relief of her pain. She reports that completing 45 degrees of lateral rotation to the left of the right exacerbates her symptoms. Resting helps to alleviate her symptoms. PMH: History of vitamin-D deficiency, generalized anxiety disorder. Social hx: Patient does not smoke, reports no substance use. Medications: Sertraline, hydroxyzine. Allergies: NKDA. Physical exam: The patient has 5/5 strength in her upper and lower extremities. No sensational deficits. Reflexes are 3+ hyperactive diffusely. She has 2 beats of clonus in her left and right ankles. She is able to ambulate well and rises from seated position without difficulty. (-) Quesada's, (-) straight leg raise. Imaging review: MRI of the cervical spine completed at [facility] shows a small posterior disc bulge at C5-6. This does not cause any central canal or foraminal stenosis. No myelomalacia or T2 signal change. There is some loss of the cervical lordosis at C3-4 causing a slight kyphotic deformity. Upon review of the flexion/extension x-rays there is no evident instability. Impression: Randa is a pleasant 28-year-old female who works as a psychiatric nurse at [employer]. She had an acute trauma injury of a fall off a rock wall at a rock climbing gym back in April. As a result of this, she had severe posterior neck pain for a couple of months, which has gradually been improving with conservative measures. She has no radiculopathy, and no neurological symptoms. Her clonus and hyperreflexia are likely confounded physical exam findings due to her concurrent SSRI use. There is no acute or obvious need for a neurosurgical intervention at this time. Upon review of her flexion/extension x-rays it is evident that she has the ability to exhibit hyperextension in the cervical spine. This extreme form of extension is typically associated with Estephanie-Danlos syndrome. It is also not uncommon to see loss of normal cervical lordosis as a result of this syndrome. She denied the want/need for physical therapy at this time as that was a potential recommendation. I believe all of her symptoms will resolve with the tincture of time. Thank you for allowing us to care for your patient. The total time spent with this visit with this patient was 30 minutes reviewing history, physical exam, MRI imaging review, and implementation of treatment plan or further diagnostic testing Moi Johnston MD,PhD [facility] Coding Level of Care Code New Pt Level 3 (64663) Diagnoses Neck Pain M54.2
== END 2023-08-24 13:47 | disposition home or self-care (01) ==
PROVIDERS: PCP Internal Medicine; Referring Provider Internal Medicine; Visit Provider Physician Assistant
DX: M54.2 Cervicalgia (principal)
CPT/HCPCS: 99203

== ENCOUNTER → 2023-08-24 13:07 | Outpatient (BNVA) | payer OTHER, SELFPAY | PROVIDERS: PCP Internal Medicine; Visit Provider Physician Assistant ==

== ENCOUNTER 2023-08-28 08:29 | Outpatient (REF) | payer OTHER, SELFPAY ==
[2023-08-28 13:19] LABS: Alanine Aminotransferase 23 U/L (0-31); Anion Gap 10 (12-20); Aspartate Amino Transferase 27 U/L (5-31); Blood Urea Nitrogen 9 mg/dL (9-16); Calcium 8.5 mg/dL (8.4-10.2); Carbon Dioxide 27 mmol/L (22-29); Chloride 107 mmol/L (96-108); Cholesterol 133 mg/dL (<200); Estimated Glomerular Filt Rate > 60; Glucose Fasting 93 mg/dL (60-99); HDL Cholesterol 38 mg/dL (>40); LDL Cholesterol Calculated 82 mg/dL (<100); Potassium 3.8 mmol/L (3.3-5.1); Sodium 140 mmol/L (135-145); Triglycerides 66 mg/dL (<150)
[2023-08-28 13:36] LABS: Vitamin D 25-OH Total 28.8 ng/mL (>30)
== END 2023-08-28 08:30 | disposition home or self-care (01) ==
LOC: HO.HMGCLDS 08:29
PROVIDERS: PCP Internal Medicine; Visit Provider Internal Medicine
DX: Z00.01 Encounter for general adult medical examination with abnormal findings (principal); Z13.6 Encounter for screening for cardiovascular disorders; F41.1 Generalized anxiety disorder; Z86.39 Personal history of other endocrine, nutritional and metabolic disease
CPT/HCPCS: 36415; 80048; 80061; 82306; 84450; 84460

== ENCOUNTER 2024-08-07 08:27 | Outpatient (AMB) | payer BC, SELFPAY ==
--- NOTE | 2024-08-07 08:30 | A.OFFPC_ITS ---
Vital Signs 08/07/24 08:33 Height 5 ft 2 in Weight 124 lb BMI 22.7 BP 96/68 Blood Pressure Location Lt brachial Position Sitting Respiration 15 Pulse 86 Pulse Source Pulse Oximeter Temp 98.1 F Temp Source Oral Pulse Oximetry (%) 97 Oxygen Delivery Method Room Air Intake Visit Reasons: PE Intake Note: Pt is here today for her PE: Allergies No Known Allergies Allergy (Verified 08/07/24 08:51) Medication List - Last Reconciled 08/07/24 by Ying Castillo MD cholecalciferol (vitamin D3) 50 mcg PO DAILY hydroxyzine HCl 10 mg PO .QD PRN levonorgestrel intrauterine sertraline (Zoloft) 100 mg PO DAILY Tobacco use date assessed: 08/07/24 Dental Screening Dental Screen Date: 08/07/24 Did you have a dental visit in the last 12 months?: Yes Did you have a dental problem in the last 6 months where you did not have access to dental care?: No Was dental information given to patient?: Patient has dentist HPI PE HPI Details 29-year-old lady with history of general ized anxiety disorder, and traumatic subluxation of cervical vertebra, here today for physical exam. He is currently on sertraline at 75 mg taken once a day which has been helping control her anxiety disorder. She is currently followed by Dr. Amy Franz in [place]. She goes to [facility] for routine Pap and pelvic exam, copy of the latest Pap Rodriguez requested She has been seen for her traumatic subluxation cervical vertebra by neuro spine surgeon, no indication for any surgery, patient states that she has been feeling better, declined physical therapy but did massage therapy which has helped relieve her neck pain. [facility] Medical History Traumatic subluxation of cervical vertebra History of vitamin D deficiency Generalized anxiety disorder Surgical History No pertinent past surgical history Family History Father Medical history non-contributory Mother Medical history non-contributory Maternal Grandmother Diabetes mellitus Social History Housing: House Alcohol intake: current Patient Tobacco Use Status: Never used Tobacco e-Cigarette/Vaping Use: Never Used service: No Current occupational status: employed Cognitive needs: No Hearing needs: No Vision needs: No Female Reproductive History Menstrual Other: Goes to [facility] for routine Pap and pelvic exam Questionnaire PHQ-9 Over the last 2 weeks, how often have you been bothered by any of the following problems? 1. Little interest or pleasure in doing things: not at all 2. Feeling down, depressed, or hopeless: not at all 3. Trouble falling or staying asleep, or sleeping too much: not at all 4. Feeling tired or having little energy: not at all 5. Poor appetite or overeating: not at all 6. Feeling bad about yourself - or that you are a failure or have let yourself or your family down: not at all 7. Trouble concentrating on things, such as reading the newspaper or watching television: not at all 8. Moving or speaking so slowly that other people could have noticed. Or the opposite - being so fidgety or restless that you have been moving around a lot more than usual: not at all 9. Thoughts that you would be better off or of hurting yourself in some way: not at all Total score: 0 Depression Screening Interpretation: Negative Depression Screening Done: Yes 47190 - PHQ-9 Billing: Yes Source: Developed by Drs. Edu Guerra, Kirti Dwyer, Dennis Barr and colleagues, with an educational nila from [employer]. Thrive Questionnaire Date Thrive assessed: 08/02/23 AUDIT C Alcohol Use Questionnaire (AUDIT-C) 1. How often do you have a drink containing alcohol?: Monthly or less 2. How many drinks containing alcohol do you have on a typical day when you are drinking?: 1 or 2 3. How often do you have six or more drinks on one occasion?: Never Total Score: 1 ANGELA-7 AMB Questionnaire ANGELA-7 Date ANGELA - 7 assessed: 08/07/24 Feeling nervous, anxious, or on edge: 0 = Not at all Not being able to stop or control worryin = Not at all Worrying too much about different things: 0 = Not at all Trouble relaxin = Not at all Being so restless that it is hard to sit still: 0 = Not at all Becoming easily annoyed or irritable: 0 = Not at all Feeling afraid as if something awful might happen: 0 = Not at all Total ANGELA-7 score (0-4 normal; 5-9 mild; 10-14 moderate; 15-21 severe): 0 Source: Developed by Drs. Edu Guerra, Kirti Dwyer, Dennis Barr and colleagues, with an educational nila from [employer]. Review of Systems Const Denies fatigue, Denies headache(s), Denies malaise and Denies weakness Eyes Details: Had recent eye exam, vision 2019 OU Reports no additional complaints ENT Reports as per HPI, Denies dizziness, Denies headache(s) and Denies disequilibrium Card Denies chest pain, Denies lightheadedness, Denies palpitations and Denies dyspnea Resp Denies cough and Denies dyspnea GI Denies abdominal pain, Denies bloating, Denies hematochezia, Denies change in bowel habits and Denies heartburn Reports no additional complaints Musc Reports as per HPI, Denies muscle weakness and Denies numbness Skin/Breast Denies breast pain, Denies breast mass, Denies lesions and Denies rash Neuro Denies dizziness, Denies headache(s), Denies numbness, Denies disequilibrium and Denies weakness Psych Reports as per HPI Endo Denies fatigue and Denies palpitations Negro/Lymph Reports no additional complaints Aller/Immun Reports no additional complaints Physical exam (Primary Care) Vital Signs: Last Vital Signs Temp 98.1 F 08/07/24 08:33 Pulse 86 08/07/24 08:33 Resp 15 08/07/24 08:33 BP 96/68 08/07/24 08:33 Pulse Ox 97 08/07/24 08:33 Oxygen Delivery Method Room Air 08/07/24 08:33 BMI result Body Mass Index 22.7 Tobacco/Smoking Status: Tobacco use Status Tobacco use date assessed 08/07/24 08/07/24 08:38 Patient Tobacco Use Status Never used Tobacco 08/07/24 08:32 e-Cigarette/Vaping Use Never Used 08/07/24 08:32 PHQ-9: PHQ-9 Score PHQ-9: Total score 0 08/07/24 08:38 Depression Screening Interpretation: Negative Thrive Assessment: Date of Thrive Assessment Date Thrive assessed 08/02/23 08/07/24 08:32 Advance Care Planning discussion: Completed/Scanned Date of discussion: 08/07/24 Who was present: Patient Forms completed: Health Care Proxy Time spent: 16-45 minutes Actual minutes spent: 2 Const General: comfortable and no acute distress Nutritional Appearance: average body habitus Orientation/consciousness: patient oriented x3 HENMT Head: Yes normocephalic Ears: external ears normal, TM's normal bilaterally and EAC's normal General nose exam: Normal external nose present Face and sinus: Yes face symmetric Mouth: Normal oral and palatal mucosa present and moist mucous membranes Eyes General: appearance normal, both eyes and all related structures Neck Neck: Yes full ROM, Yes no lymphadenopathy and Yes supple Thyroid: Thyroid normal Chest Chest palpation & inspection: normal inspection of the chest Breast/axilla inspection: normal inspection of the breasts Breast/axilla palpation: normal palpation of the breasts Resp Effort & Inspection: normal respiratory effort and able to speak in complete sentences Auscultation: clear to auscultation bilaterally Cardio Palpation: normal PMI Rate: regular rate Rhythm: regular rhythm Heart sounds: S1 normal heart sound present and S2 normal heart sound present GI Inspection: Yes normal to inspection Palpation (GI): Soft to palpation, nontender, no guarding and no masses Auscultation: normal bowel sounds General: Yes no CVA tenderness Back/Spine/Pelvis Back: no CVA tenderness Cervical Spine: cervical ROM normal Thoracic/Lumbar Spine: thoracic and lumbar spine normal to inspection Skin General skin exam: no rashes or lesions noted Neuro General: patient oriented x3, gait normal, tone normal, moves all extremities, no focal motor deficits and CN's II-XI intact bilaterally Gait exam (Neuro): Normal gait present Motor exam (neuro): 5/5 motor strength present throughout Extrem General: Yes full ROM, Yes no joint enlargement, Yes no pedal edema, Yes no calf tenderness and Yes normal gait Psych Appearance: grossly normal and well kempt Mental Status: mental status grossly normal Speech and movement: Normal speech and movement present Affect: normal affect Attitude: cooperative Thought process: Normal thought process present Thought content: Normal thought content present Coding Level of Care Code Est Pt Prev Care 18-39y(96421) Diagnoses Annual visit for general adult medical examination with abnormal findings Z00.01 Generalized anxiety disorder F41.1 History of vitamin D deficiency Z86.39 Encounter for counseling regarding advance directives Z71.89 Additional Codes PHQ-9 - 71049 - PHQ-9 Billing: Yes ([id number]) Vital Signs *Quality* - Advance Care Planning discussion: Completed/Scanned ( [id number]) Vital Signs *Quality* - Time spent: 16-45 minutes ([id number]) Assessment & Plan Assessment & Plan (1) Annual visit for general adult medical examination with abnormal findings: Code(s): Z00.01 - Encounter for general adult medical examination with abnormal findings Plan: Fasting labs ordered today. Up-to-date with her routine eye exam. Goes to [facility] for routine Pap and pelvic exam, just done 06/16/2024 copy of results requested. Advised to do regular self-breast exam to check for any mass. Up-to-date with her vaccine, but does not want to get any further COVID boosters (2) Generalized anxiety disorder: Code(s): F41.1 - Generalized anxiety disorder Category: Medical Plan: Controlled on sertraline 100 mg daily, followed by Dr. Amy franz. (3) History of vitamin D deficiency: Code(s): Z86.39 - Personal history of other endocrine, nutritional and metabolic disease Category: Medical Plan: Will check vitamin-D level, to started taking vitamin-D 3 [id number] 2000 units daily (4) Encounter for counseling regarding advance directives: Code(s): Z71.89 - Other specified counseling Plan: Initiated the conversation about Advanced Directives. Advanced Directives help patients prepare for current and future decisions about their medical treatment and place of care. Discussed with patient that it is a process where a patients current condition and prognosis are reviewed, their wishes for information regarding their illness are elicited, and likely medical dilemmas are presented and options discussed. Healthcare proxy form completed today The form can be amended as needed, reviewed yearly and make changes as needed Orders: Orders Vitamin D 25-OH Total 1 Month F41.1 - Generalized anxiety disorder, Z00.01 - Encounter for general adult medical examination with abnormal findings, Z71.89 - Other specified counseling, Z86.39 - Personal history of other endocrine, nutritional and metabolic disease Alanine Aminotransferase 1 Month F41.1 - Generalized anxiety disorder, Z00.01 - Encounter for general adult medical examination with abnormal findings, Z71.89 - Other specified counseling, Z86.39 - Personal history of other endocrine, nutritional and metabolic disease Aspartate Amino Transferase 1 Month F41.1 - Generalized anxiety disorder, Z00.01 - Encounter for general adult medical examination with abnormal findings, Z71.89 - Other specified counseling, Z86.39 - Personal history of other endocrine, nutritional and metabolic disease Lipid Panel 1 Month F41.1 - Generalized anxiety disorder, Z00.01 - Encounter for general adult medical examination with abnormal findings, Z71.89 - Other specified counseling, Z86.39 - Personal history of other endocrine, nutritional and metabolic disease Glucose Fasting 1 Month F41.1 - Generalized anxiety disorder, Z00.01 - Encounter for general adult medical examination with abnormal findings, Z71.89 - Other specified counseling, Z86.39 - Personal history of other endocrine, nutritional and metabolic disease Medications: Changed From sertraline (Zoloft) 75 mg (1.5 x 50 mg) PO DAILY 3 months 135 tabs 1RF To sertraline (Zoloft) 100 mg PO DAILY
[2024-08-07 08:33] VITALS: BP 96/68; PULSE 86; RESP 15; TEMP 36.7; O2SAT 97; BMI 22.7
--- OUTSIDE RECORDS SUMMARY | 2024-08-07 08:58 | XMS_ITS | Clinical Summary ---
Author Organization [facility] Address [address] [place] [address] Care Team Providers Care [employer] Retailer Sales Consultant Name Role Phone Pcp, No Primary Care Provider Unavailabl e Social History Tobacco Use Types Packs/Day Years Used Date Smoking Tobacco: Never Assessed Sex and Gender Information Value Date Recorded Sex Assigned at Not on file Gender Identity Female 09/23/2021 10:52 AM EDT Sexual Orientation Not on file Plan of Treatment Health Maintenance Due Date Last Done Comments Hepatitis C Virus Screening 1997 HIV Screening 2010 DTaP/Tdap/Td Vaccines (1 - Tdap) 01/30/2016 Hepatitis B Vaccines (1 of 3 - 19+ 3-dose series) 01/30/2016 Pap Smear (Ages 21-65) 2018 Influenza Vaccine 12/27/2023 06/18/2017, 06/03/2008 COVID-19 Vaccine (2023-2 5 season) 2024 HPV Vaccines Aged Out No longer eligi ble based on patient's age to complete this topic Pneumococcal Vaccine: Pediatric (0-5 Years) and At-Risk Patients (6 to 49 Years) Aged Out No longer eligible b ased on patient's age to complete this topic Care Teams [employer] Retailer Sales Consultant Relationship Specialty Start Date End Date Pcp, [address] [place] [address] PCP - General 10/15/20
--- OUTSIDE RECORDS SUMMARY | 2024-08-07 08:58 | XMS_ITS | Encounter Summary ---
Author Organization [facility] Address [address] [place] [address] Phone Care Team Providers Care Recruiting Associate Name Role Phone Julia Perrin MD Primary Care Provider Encounter Details Date Type Department Care Team (Late st Contact Info) Description 10/07/2015 Documentation [facility] Family Medicine [address] [place] [address] Family Medicine, Physician [address] [place], [place] [id number] Social History Tobacco Use Types Packs/Day Years Used Date Smoking Tobacco: Never Assessed Comments Unknown Sex and Gender Information Value Date Recorded Sex Assigned at Not on file Legal Sex Female 5:07 PM EDT Gender Identity Not on file Sexual Orientation Not on file documented as of this encounter Plan of Treatment Not on file documented as of this encounter Visit Diagnoses Not on filedocumented in this encounter Care Teams Recruiting Associate Relationship Specialty Start Date End Date Julia Perrin MD [address] [facility] [place] [address] PCP - General 04/17/18 11/15/22 documented as of this encounter
--- OUTSIDE RECORDS SUMMARY | 2024-08-07 08:58 | XMS_ITS | Encounter Summary ---
Author Organization [facility] Address [address] [place] [address] Phone Care Team Providers Care Bagger And Stock Handler Helper Name Role Phone Julia Perrin MD Primary Care Provider [phone] Encounter Details Date Type Department Care Team (Late st Contact Info) Description 01/11/2017 Conversion Encounter [facility] [address] [place] [address] Social History Tobacco Use Types Packs/Day Years Used Date Smoking Tobacco: Never Comments:Never smoker Comments Unknown Sex and Gender Information Value Date Recorded Sex Assigned at Not on file Legal Sex Female 5:07 PM EDT Gender Identity Not on file Sexual Orientation Not on file documented as of this encounter Plan of Treatment Not on file documented as of this encounter Visit Diagnoses Not on filedocumented in this encounter Care Teams Bagger And Stock Handler Helper Relationship Specialty Start Date End Date Julia Perrin MD [address] [place] [address] PCP - General 04/17/18 11/15/22 documented as of this encounter
--- OUTSIDE RECORDS SUMMARY | 2024-08-07 08:58 | XMS_ITS | Data Portability ---
Author Organization [facility], [address] Address [address] [place] [address] Assessment No assessment recorded. Plan of Treatment Reminders Order Date Submit Date Provider Last Modified By Organization Details Last Modified Time Details Appointments None recorded. Lab vaginal pathogens panel, SANJUANITA+probe, vaginal fluid 2022 023 [email or web address] [facility] ([place]), [address] [place] [address], [id number], 3 06:07:43 rapid SARS CoV 2 Ag, QL IA, respiratory specimen 2022 023 [email or web address] [facility] [address] [place] [address], [id number], 3 18:34:57 rapid strep group A, throat 2022 023 _[facility], [address] [place] [address], [id number], 3 18:34:57 mononucleos is, heterophile Ab, blood 2022 023 [email or web address] _[facility], [address] [place] [address], [id number], 3 18:34:57 streptococc us group A, culture, throat 2022 023 ILIR [facility] [address] [place] [address], [id number], 3 06:07:55 Referral None recorded. Procedures None recorded. Surgeries None recorded. Imaging None recorded. Medication Orders amoxicillin 500 mg capsule 2022 023 [id number], [address] [facility] , [place], [address], 18:35:00 Patient TargetsNo targets recorded. Patient Instructions Encounter Date Encounter Id Patient Instructions Last Modified By Organization Details Last Modified Time 08/22/2022 [id number] sore throat: car e instructions [email or web address] Not available 08/22/2022 18:34:57 Based on your Presentation, Exam, and Lab Testing you are being diagnosed with Pharyngitis. Throat very red suspicious for strep. Your Rapid Strep Test was Negative. Most likely your sore throat is being caused by a virus, post nasal drip, or silent acid reflux. I am going to send a Throat Culture to the lab for you to make sure you don't have a different form of strep in your throat. This will take about 72 hours for that result to return. We will contact you if it positive - if for some reason you don't get a copy of your results or hear from us - please contact our office. I am going to prescribe you and antibiotic to cover this infection. Please be sure to complete the full course of this antibiotic to prevent antibiotic resistance. It is also important to complete this antibiotic because this infection is what causes Scarlet Fever/Rheumatic Heart Disease. Antibiotics will typically take 4-5 days to start to work with symptom improvement. The following are my other recommendations to help with symptoms and is important for this diagnosis: 1. Do not share any food or drinks - strep is passed through direct saliva exchange (NOT IN THE AIR) 2. Change your toothbrush in 3-4 days so that you don't re-infect yourself after you complete the antibiotic. 3. Take Ibuprofen or Tylenol if you do not have any allergies to these medications. If you take a blood thinner you should not take NSAIDS like Ibuprofen. These medication will help with the inflammation in your respiratory tract which should help the cough. (I would alternate between Tylenol 650 mg and your Ibuprofen 600 mg every 4 hours) 4. Do not take any Cold Medications that have a Decongestant in it - this will dry out your throat and make the sore throat worse. 5. Drinking Hot Tea with honey can help coat and soothe your throat. 6. You would be considered contagious for the next 24-48 hours, or until fever resolves. I would be seen again if you develop any of the following symptoms. 1. Fever > 101.0 2. Stiff neck - where you can't turn your neck 3. Trouble swallowing your saliva - drooling 4. Swelling of a lymph node in your throat that is painful to touch 5. Difficulty breathing 6. Severe Headache Thank you for using [facility] today, please feel free to contact our office if you have any questions or concerns. [email or web address] Not available 08/22/2022 18:34:54 Reason for Referral None Reported. Results Created Date Observation Date Name Description Value Unit Range Abnormal Flag Note LastModifiedBy Organization Detail LastModifiedTime 08/23/19 23 08/23/2022 NUA B VAGIN ITIS PLUS (VG+) atopobium vaginae LOW - 0 score Not Available [facility] ([facility]) [address] [place], [address], 08/24/2022 06:07:43 08/23/19 23 08/23/2022 NUA B VAGIN ITIS PLUS (VG+) bvab 2 LOW - 0 score Not Available [facility] ([facility]) [address] [place], [address], 08/24/2022 06:07:43 08/23/19 23 08/23/2022 [facility] B VAGIN ITIS PLUS (VG+) megasphaera 1 LOW - 0 score Calcu late total score by sharad g the 3 indiv idual bacte rial vagin osis (BV) marke r score s toget her. Total score is inter prete d as follo ws: Total score 0-1: Indic ates the absen ce of BV. Total score 2: Indet ermin ate for BV. Addit ional clini omer data shoul d be evalu ated to estab cindy a diagn osis. Total score 3-6: Indic ates the prese nce of BV. This test was devel oped and its perfo rmanc e jere cteri stics deter mined by [facility]. It has not been clear ed or appro marielena by the Food and Drug Admin istra tion. Not Available [facility] ([facility]) [address] [place], [address], 08/24/2022 06:07:43 08/23/19 23 08/23/2022 NUSWA B VAGIN ITIS PLUS (VG+) rip albicans, SANJUANITA NEGATI VE negati ve Not Available [facility] ([facility]) [address] [place], [address], 08/24/2022 06:07:43 08/23/19 23 08/23/2022 NUSWA B VAGIN ITIS PLUS (VG+) rip glabrata, SANJUANITA NEGATI VE negati ve Not Available [facility] ([facility]) [address] [place], [address], 08/24/2022 06:07:43 08/23/19 23 08/24/2022 NUSWA B VAGIN ITIS PLUS (VG+) trich vag by SANJUANITA NEGATI VE negati ve Not Available [facility] ([facility]) [address] [place], [address], 08/24/2022 06:07:43 08/23/19 23 08/24/2022 NUSWA B VAGIN ITIS PLUS (VG+) chlamydia trachomatis, SANJUANITA NEGATI VE negati ve Not Available [facility] ([facility]) [address] [place], [address], 08/24/2022 06:07:43 08/23/19 23 08/24/2022 NUSWA B VAGIN ITIS PLUS (VG+) neisseria gonorrhoeae, SANJUANITA NEGATI VE negati ve Not Available [facility] ([facility]) [address] [place], [address], 08/24/2022 06:07:43 08/23/19 23 08/25/2022 BETA STREP GP A CULTU RE beta strep gp A culture NEGATI VE Refer ence Range : Negat emmie Not Available [facility] ([facility]) [address] [facility], [place], [address], 08/25/2022 06:07:55 08/23/19 23 08/22/2022 monon ucleo sis, heter ophil e Ab, blood Unknown Analyte Normal = Negati ve Not Available [address], [place], [address], 08/22/2022 18:26:40 08/23/19 23 08/22/2022 monon ucleo sis, heter ophil e Ab, blood Unknown Analyte negati ve Not Available [address], [place], [address], 08/22/2022 18:26:40 08/23/19 23 08/22/2022 rapid SARS CoV 2 Ag, QL IA, respi rator y speci men Unknown Analyte Normal =Negat emmie Not Available [address], [place], [address], 08/22/2022 18:03:48 08/23/19 23 08/22/2022 rapid SARS CoV 2 Ag, QL IA, respi rator y speci men Unknown Analyte negati ve Not Available [address], [place], [address], 08/22/2022 18:03:48 08/23/19 23 08/22/2022 rapid strep group A, throa t Unknown Analyte Normal = Negati ve Not Available [address], [place], [address], 08/22/2022 18:03:55 08/23/19 23 08/22/2022 rapid strep group A, throa t Unknown Analyte negati ve Not Available [id number] [address] [place] [address], [place], [address], 08/22/2022 18:03:55 Result Notes None recorded. Problems No Known Problems Medical Equipment None Reported. Allergies No known drug allergies Medications Name Sig Start Date Stop Date Status Note LastModified by Organization Details LastModified Time amoxicillin 500 mg capsule TAKE 1 CAPSULE BY MOUTH THREE TIMES A DAY FOR 10 DAYS active Not Available Not Available No t Available buspirone 5 mg tablet TAKE 1/2 TABLET BY MOUTH TWICE DAILY NEEDED FOR ANXIETY active Not Available Not Available No t Available amoxicillin 875 mg-potassium clavulanate 125 mg tablet TAKE 1 TABLET BY MOUTH EVERY 12 HOURS FOR 10 DAYS 08/22 completed Not Available Not Available Not Available nitrofuranto in monohydrate/ macrocrystal s 100 mg capsule TAKE 1 CAPSULE BY MOUTH TWICE DAILY FOR 7 DAYS 08/22 completed Not Available Not Available Not Available Vitals Date Recorded Body height Body mass index (BMI) Body weight Body temperature Respiratory rate Oxygen saturation Oxygen saturation in Arterial blood by Pulse oximetry Heart rate Systolic blood pressure Diastolic blood pressure Provider Name and Address Organization Details Last Updated DateTime 3 160.02 cm 19.5 kg/m2 12802.1 6 g 98 [degF] 18 /min 97 % 97 % 80 /min 130 mm[Hg] 86 mm[Hg] JULIET Ware PA - [facility] 18:01:13 Social History Question Answer Notes LastModified by Organizat ion Details LastModified Time Tobacco Smoking Status Never Smoker JULIET dhaliwal PA - [facility] 08/22/2022 17:59:52 What Is Your Level Of Alcohol Consumption? Occasional Information not available 08/22/2022 What Is Your Water Source? City Information not available 08/22/2022 What Is Your Heat Source? Other Information not available 08/22/2022 Have You Had Direct Contact, Or Contact During Intimacy, With Monkeypox Rash, Scabs, Or Body Fluids From A Person With Monkeypox? No Information not available 08/22/2022 Do You Use Any Illicit Or Recreational Drugs? No Information not available 08/22/2022 Have You Recently Traveled Abroad? No Information not available 08/22/2022 Do You Or Have You Ever Used Any Other Forms Of Tobacco Or Nicotine? No Information not available 08/22/2022 Sex: Unknown Functional Status None recorded. Mental Status None recorded. Family History Relationship Description Onset Age of this Age Resolved Age Notes LastModified by Organization Details LastModified Time Mother Essential hypertension Not available 08/22/2022 17:59:23 Mother Hyperlipidem ia Not available 17:59:31 Maternal Grandmother Malignant tumor of breast Not available 17:59:41 Medical History No medical history recorded. Gynecological History Statement/Question Response Current Control Method IUD Obstetrics History GPAL:G 0 P 0 0 0 0 Past Encounters Encounter ID Performer Location Encounter Start Date Encounter Closed Date Diagnosis/Indication Diagnosis SNOMED-CT Code Diagnosis ICD10 Code Diagnosis Note [id number] [address] [address] 12/06/2016 11:12:56 12/06/2016 11:50:25 [id number] A[facility] MEDELLIN [address] [address] [address] 08/22/2022 16:33:45 08/22/2022 18:36:44 High risk sexual behavior 441748439 Z72.51 Acute pharyngitis 876548 003 J02.9 Exposure t o SARS-CoV-2 002762667 Z20.822 Negative COVID. Health Concerns Section Related Observation LastModified by Organization Detai ls LastModified Time None Recorded Concern Status LastModified by Organization Details LastModified Time None Recorded Advance Directives Directive None Recorded Payers Encounter Date Sequence Insurance Name Policy Number Policy Howe Covered Member ID Howe Member ID Guarantor Name 08/22/2022 1 [facility] [id number] 1 Randa Tijerina [id number] Randa Tijerina Notes Date Note Type Note Provider Name and Address Organization Details Recorded Time 3 text/html Sore throatReported bypatient.Source of patient informationInformation obtained from patient; Patient arrived at Urgent Care ambulatory Location:throat Severity:moderate Quality:hurts to swallow Onset/Timin days Associated Symptoms:no cough; no sputum production; no shortness of breath; no wheezing; no sinus pain; no vomiting; no nausea; No hoarseness;sore throat; Pain the back of the neck and flank pain. Feels achy and tired. No history of mono. Context:sick contact; Works in [employer] so around patients all day. Modifying Factors:exposed to Strep household *Notes:New sexual partner. Would like STI testing. ASHWIN MEDELLIN [address] [place], [address], PA - [facility] 08/22/2022 18:37:03 OBGyn Episode No OBEpisode recorded.
--- OUTSIDE RECORDS SUMMARY | 2024-08-07 08:58 | XMS_ITS | Encounter Summary ---
Author Organization [facility] Address [address] [place] [address] Phone Care Team Providers Care Hazardous Materials Driver Name Role Phone Julia Perrin MD Primary Care Provider Encounter Details Date Type Department Care Team (Late st Contact Info) Description 12/17/2009 Documentation [facility] Family Medicine [address] [place] [address] Family Medicine, Physician [address] [place], [place] [phone] Social History Tobacco Use Types Packs/Day Years [...] on filedocumented in this encounter Care Teams Hazardous Materials Driver Relationship Specialty Start Date End Date Julia Perrin MD [address] [facility] [address] PCP - General 04/17/18 11/15/22 documented as of this encounter
--- OUTSIDE RECORDS SUMMARY | 2024-08-07 08:58 | XMS_ITS | Encounter Summary ---
Author Organization [facility] Address [address] [place] [address] Phone Care Team Providers Care Wares Sorter Name Role Phone Julia Perrin MD Primary Care Provider Encounter Details Date Type Department Care Team (Late st Contact Info) Description 08/01/2012 Documentation [facility] [place] [address] [place] [address] Family Medicine, Physician [address] [place], [place] [phone] Social History Tobacco Use Types Packs/Day Years [...] on filedocumented in this encounter Care Teams Wares Sorter Relationship Specialty Start Date End Date Julia Perrin MD [address] [facility] [place] [address] PCP - General 04/17/18 11/15/22 documented as of this encounter
--- OUTSIDE RECORDS SUMMARY | 2024-08-07 08:58 | XMS_ITS | Encounter Summary ---
Author Organization [facility] Address [address] [place] [address] Care Team Providers Care French Professor Name Role Phone Pcp, No Primary Care Provider Unavailabl e Encounter Details Date Type Department Care Team (Late st Contact Info) Description 09/22/2021 Lab Requisition [place] COVID-[address] [address] Jona Woodall MD [address] [place] [address] Encounter for laboratory testing for COVID-19 virus Social History Tobacco Use Types Packs/Day Years Used Date Smoking Tobacco: Never Assessed Sex and Gender Information Value Date Recorded Sex Assigned at Not on file Gender Identity Female 09/23/2021 10:52 AM EDT Sexual Orientation Not on file documented as of this encounter Plan of Treatment Not on file documented as of this encounter Procedures Procedure Name Priority Date/Time Associated Diagnosis Comments MARGIE COVID-19 (SARS-COV-2), SANJUANITA (IN-HOUSE) BEAKER Routine 09/22/2021 2:00 PM EDT Encounter for laboratory testing for COVID-19 virus [ICD-10-CM] documented in this encounter Results * (ABNORMAL) [place] COVID-19 (SARS-CoV-2), SANJUANITA (In-House) (09/22/2021 2:00 PM EDT) SARS CoV 2 Detected(A) Not Detected 09/22/2021 5:42 PM EDT [facility] Comment: Positive results are indicative of the presence of SARS-CoV-2 RNA (COVID-19). The SARS-CoV-2 (Covid-19) Nucleic Acid Amplification Assay is limited to laboratories certified under the Clinical Laboratory Improvement Amendments of 1988 (CLIA), 42 U.S.C. 263a, to perform high complexity tests. Nucleic acid amplication tests include RT-PCR and TMA. This assay has not been FDA cleared or approved, however, this assay has been authorized by the Food and Drug Administration (FDA) under an Emergency Use Authorization (EUA). ??Validation was completed and performance characteristics established by [facility] as per the FDA and CLIA requirement for this EUA. The Aptima SARS-CoV-2 assay Letter of Authorization, along with the authorized Fact Sheet for Healthcare Providers, the authorized Fact Sheet for Patients, and authorized labeling are available on the FDA website: https://www.fda.gov/medical-devices/kfraqhbvw-ikjcvffuyp-owolvua-devices/emergen - r-dowjilsyffjgxi-burtkdb-devices. Performed at [facility], [place], [place] ??CT License 0385 ??CLIA [id number] Source Anterior Nares 09/22/2021 5:42 PM EDT [facility] Microbiology Nasopharyngeal swab / Unknown 09/22/2021 2:00 PM EDT 09/22/2021 2:00 PM EDT Jona Woodall MD MICROBIOLOGY - GENER AL ORDERABLES [facility] [address] [place] [address] documented in this encounter Visit Diagnoses Diagnosis Encounter for laboratory testing for COVID-19 virus documented in this encounter Care Teams French Professor Relationship Specialty Start Date End Date Pcp, No [address] [place] [address] PCP - General 10/15/20 documented as of this encounter
--- OUTSIDE RECORDS SUMMARY | 2024-08-07 08:58 | XMS_ITS | Clinical Summary ---
Author Organization [facility] Address [address] [place] [address] Phone Care Team Providers Care Office Equipment Mechanic Name Role Phone Unavailable Primary Care Provider Unavailabl e Allergies No known active allergies Medications levonorgestrel-eth inyl estradiol (ORSYTHIA) 0.1-20 MG-MCG per tabletIndications: Encounter for initial prescription of contraceptive pills Take 1 tablet by mouth daily. 28 tablet 12 8 Active Active Problems Problem Noted Date Diagnosed Date Encounter for surveillance of contraceptive pill s 06/18/2017 Overview (06/18/2017): Doing well on Orsythia Ingrown toenail without infection 06/01/2017 Overview (06/01/2017): refer to podiatry Assessment & Plan (06/18/2017 1:34 PM EST): You have an appointment coming up with podiatry. Assessment & Plan (06/01/2017 9:44 AM EST): Bilat medial ingrown toenails. Not infected. Handout given and discussed. Care discussed. Referral done for podiatry. You have your yearly PE coming up. Dyshidrotic hand dermatitis 09/20/2015 Assessment & Plan (06/18/2017 1:32 PM EST): Your hands are looking good today. You do still get occasional itchy bumps on your fingers. Raynaud's disease without gangrene 09/20/2015 Assessment & Plan (06/18/2017 1:32 PM EST): You keep your hands warm. Melanocytic nevus of left shoulder 09/20/2015 Underweight 04/17/2011 Assessment & Plan (06/18/2017 1:33 PM EST): Doing well for you at 99# Immunizations Immunization Administration Dates Next Due DTaP 5 02/15/2001, 9,1997,05/29,1997 Hep A, ped/adol 09/20/2015,06/01/2014 Hep B, ped/adol 1997,1997,1997 Hib (PRP-T) 05/12/1998, 8,1997,04/01 IPV 1997,1997 Influenza, injectable, quadr ivalent, preservative free 06/18/2017 Influenza, injectable, trivalent 06/03/2008 MMR 02/15/2001,05/12/1998 Meningococcal Conj (Menactra) MCV4P 06/04/2015,0 02/19/2009 OPV 02/15/2001,08/10/1998 Tdap 06/18/2017,02/19/2009 Varicella 02/19/2008,04/27/1998 Family History Medical History Relation Name Comments Breast cancer Maternal Grandmother Diabetes Maternal Grandmother Hypertension Maternal Grandmother Relation Name Status Comments Father Alive Father: Alive a nd well Maternal Grandmother Mother Mother: Deafnes s, Hypertension, Hypertension Other No family histo ry of *Thrombophilia, Family history of *Heart Disease, Family history of *Dental caries, Family history of Cancer - breast, liver, No family history of ADD/ADHD, Family history of Seizure disorder, Family history of Cancer, breast, Family history of Cardiovascular disease, No family history of Strabismus, No family history of *CVA/Stroke, No family history of Asthma, No family history of Developmental dislocation of hip, Family history of Obesity, No family history of Migraines, Family history of Deafness, Family history of Hyperlipidemia, Family history of Diabetes mellitus Social History Tobacco Use Types Packs/Day Years Used Date Smoking Tobacco: Never Smokeless Tobacco: Never Comments:Never smoker Alcohol Use Standard Drinks/Week Comments No 0 (1 standard drink = 0.6 oz pur e alcohol) Comments No Sex and Gender Information Value Date Recorded Sex Assigned at Not on file Legal Sex Female 5:07 PM EDT Gender Identity Not on file Sexual Orientation Not on file Last Filed Vital Signs Vital Sign Reading Time Taken Comments Blood Pressure 114/73 06/18/2017 1:12 PM EST Pulse 75 06/18/2017 1:12 PM EST Temperature 36.9 ??C (98.5 ??F) 06/18/2017 1:12 PM ES T Respiratory Rate - - Oxygen Saturation - - Inhaled Oxygen Concentration - - Weight 45 kg (99 lb 3.2 oz) 06/18/2017 1:[address] Height 159.4 cm (5' 2.75 ) 06/18/2017 1:12 PM ES T Body Mass Index 17.71 06/18/2017 1:12 PM EST Plan of Treatment Health Maintenance Due Date Last Done Comments Influenza Vaccines (#1) 2023 06/18/2017, 06/03 COVID-19 Vaccine ( season) 2024 DTaP,Tdap,and Td Vaccines (8 - Td or Tdap) 06/18/2027 06/18/2017, 02/19/2009, 02/15/2001, Additional history exists Hepatitis B Vaccines Completed 1997, 1997, 1997 HIB Vaccines Completed 05/12/1998, 08/1997, 1997, Additional history exists IPV Vaccines Completed 02/15/2001, 07/26, 1997, Additional history exists MMR Vaccines Completed 02/15/2001, 05/12/1998 Varicella Vaccines Completed 02/19/2008, 04/27/1998 Meningococcal Vaccine Completed 06/04/2015, 009 Hepatitis A Vaccines Completed 09/20/2015, 06/01/19 15 HPV Vaccines Aged Out No longer eligi ble based on patient's age to complete this topic Men B Vaccine Aged Out No longer elig ible based on patient's age to complete this topic Pneumococcal Vaccine Aged Out No long er eligible based on patient's age to complete this topic Procedures * Due to [place] state law, this organization might not be sharing sensitive test results. Procedure Name Priority Date/Time Associated Diagnosis Comments CHLAMYDIA AND GONORRHEA, AMPLIFIED Routine 06/09/2016 2:06 PM EST from Last 3 Months or Most Recently Relevant to Health Maintenance Results * Due to [place] state law, this organization might not be sharing sensitive test results. * Chlamydia and Gonorrhoea, Amplified (06/09/2016 2:06 PM EST) URINE CHLAMYDIA AMP PROBE NEGATIVE [facility] Comment: No Chlamydia Trachomatis RNA detected in this patient's sample (REFERENCE RANGE/NORMAL VALUE: NOT DETECTED) URINE GC AMP PROBE NEGATIVE [facility] Comment: No Neisseria Gonorrhoeae RNA detected in this patient's sample (REFERENCE RANGE/NORMAL VALUE: NOT DETECTED) NOTE: This test uses bank cashier-mediated amplification method to detect rRNA from C.Trachomatis and N.Gonorrhoeae. A negative result does not preclude infection. In the case of a negative urine result, testing of an endocervical(female) or urethral(male) specimen is recommended if there is high clinical suspicion of infection. The performance characteristics of this test have not been evaluated in children. The Aptima Combo2 assay is not intended for the evaluation of suspected sexual abuse or for other medico-legal indications. The ordering provider should assess if the patient had consensual sex without risk of sexual abuse. Consult the [facility] if needed. Contact phone number . Therapeutic failure or success cannot be determined with the Aptima Combo2 assay since nucleic acid may persist following appropriate antimicrobial therapy. The Centers for Disease Control and Prevention (CDC) recommends confirmatory retesting using culture or a different nucleic acid amplification test when positive results occur, if indicated. Testing performed or reported by [facility], a Service of [facility], [address] [place] [address] [place] [address] CLIA ??[id number] Raman Alfredo MD, PhD, Hat Braider 06/09/2016 2:06 PM EST Narrative [facility] - 06/09/2016 2:06 PM EST URINE CHLAMYDIA GC AMP PROBE us Julia Perrin MD LAB MICROBIOLOGY - GENERAL O RDERABLES Final Result [facility] [address] [place] [id number], from Last 3 Months or Most Recently Relevant to Health Maintenance [facility]
== END 2024-08-07 09:03 | disposition home or self-care (01) ==
PROVIDERS: PCP Internal Medicine; Visit Provider Internal Medicine
DX: Z00.01 Encounter for general adult medical examination with abnormal findings (principal); F41.1 Generalized anxiety disorder; Z86.39 Personal history of other endocrine, nutritional and metabolic disease; Z71.89 Other specified counseling; Z00.00 Encounter for general adult medical examination without abnormal findings

== ENCOUNTER → 2024-08-07 08:27 | Outpatient (BNVA) | payer BC, SELFPAY | PROVIDERS: PCP Internal Medicine; Visit Provider Internal Medicine | DX: Z00.01 Encounter for general adult medical examination with abnormal findings (principal); F41.1 Generalized anxiety disorder; Z86.39 Personal history of other endocrine, nutritional and metabolic disease; Z79.899 Other long term (current) drug therapy; Z71.89 Other specified counseling | CPT/HCPCS: 96127 ==